=== PATIENT | male | born 1990 | race Caucasian/White ===

== ENCOUNTER 2016-10-05 08:34 | Emergency (ER) | payer OTHER, MEDICAID ==
[~2016-10-05] VITALS: Ht 180.3 cm; Wt 89.3 kg
[2016-10-05 09:00] VITALS: BP 137/74
== END 2016-10-05 09:00 | disposition home or self-care (01) ==
LOC: ED 08:34
DX: J30.9 Allergic rhinitis, unspecified (principal); J45.909 Unspecified asthma, uncomplicated

== ENCOUNTER 2016-12-28 21:05 | Emergency (ER) | payer OTHER ==
[2016-12-28 21:45] VITALS: BP 124/73
== END 2016-12-28 23:15 | disposition home or self-care (01) ==
LOC: ED 21:05
DX: S52.501A Unspecified fracture of the lower end of right radius, initial encounter for closed fracture (principal); X58.XXXA Exposure to other specified factors, initial encounter; Y93.89 Activity, other specified; Y99.8 Other external cause status; Y92.89 Other specified places as the place of occurrence of the external cause